=== PATIENT | female | born 2005 | race Asian ===

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

== ENCOUNTER → 2023-04-02 | Outpatient (CLI) | payer BC | LOC: COL.RAD 03-17 08:30 | DX: M25.552 Pain in left hip (principal) | CPT/HCPCS: A9575; J3301; Q9967 ==